=== PATIENT | male | born 1980 | race Caucasian/White ===

== ENCOUNTER 2022-11-06 18:43 | Emergency (ER) | payer SELFPAY ==
[2022-11-06 18:50] VITALS: BP 144/96
[2022-11-06] MEDS ORDERED: BUPIVACAINE 0.5% PF 10 ML VIAL SUBQ STA (18:53)
[2022-11-06] MEDS ORDERED: ceFAZolin 1 GM VIAL IM STA (18:53)
--- NOTE | 2022-11-06 18:54 | ED Physician Documentation ---
PD HPI UPPER EXT INJURY - Stated complaint Stated Complaint: RT FINGER INJ - Chief complaint Chief Complaint: Trauma Ext - History obtained from History obtained from: Patient (Right-handed gentleman who is up-to-date on tetanus cut the tip of his dominant, right index finger while working with a lawnmower just prior to arrival.) PD PAST MEDICAL HISTORY - Present Medications Home Medications: Ambulatory Orders Medication Instructions Recorded Confirmed Bacitracin Zinc Oint 1 applic TOP BID #1 each 11/06/22 HYDROcod/ACETAM 5/325 [[place] 5/325] 1 - 2 tab PO Q6H PRN #15 tablet 11/06/22 cephALEXin [Keflex] 500 mg PO Q6H #28 cap 11/06/22 - Allergies Allergies/Adverse Reactions: Allergies Allergy/AdvReac Type Severity Reaction Status Date / Time No Known Drug Allergies Allergy Verified 11/06/22 18:47 PD ED PE NORMAL - Vitals Vital signs reviewed: Yes - General General: Alert and oriented X 3, No acute distress - Extremities Extremities: Other (He has incomplete amputation with a laceration through the middle of the distal phalanx including the nail and is insensate at the tip. This is of the right second finger) - Neuro Neuro: Alert and oriented X 3, Normal speech Results - Vitals Vitals: Vital Signs - 24 hr 11/06/22 18:47 Temperature 36.5 C Heart Rate 88 Respiratory 20 Rate Blood Pressure 144/96 H O2 Saturation 99 Oxygen O2 Source Room air - Rads (name of study) r 2nd finger Relevant Findings:: Final report received, EMP independent interpretation of test Procedures - Laceration (location) Right second finger Length in cm: 3 Wound type: Flap, Exposure of bone Tendon involvement: Tendon intact Anesthesia: Marcaine 0.5% (Digital block with excellent anesthesia) Wound preparation: Irrigated copiously NS, Debrided moderately, Wound explored Skin layer closure: Nylon, Interrupted, Size #-0 - enter number (4-0) Other: Tetanus UTD - Splint (location) - Minor Right second finger Splint applied by: Tech Type of splint: Metal foam finger splint PD Medical Decision Making - ED course ED course: 42-year-old gentleman with open fracture with complex laceration of the distal part of the right dominant second finger. Digital block was done with excellent anesthesia and it was thoroughly irrigated. The nail was already gone, there was no remaining nail at all either proximal or distal to the laceration. The laceration was closed with interrupted sutures. Discussed with him the need to follow-up with orthopedics for further evaluation and treatment. He received Ancef IM here. 1 g. Departure - Departure Disposition: 01 Home, Self Care Clinical Impression: Open fracture of finger of right hand Qualifiers: Encounter type: initial encounter Finger: index finger Phalanx: distal Fracture alignment: displaced Qualified Code(s): S62.630B - Displaced fracture of distal phalanx of right index finger, initial encounter for open fracture Condition: Good Record reviewed to determine appropriate education?: Yes Instructions: ED Fx Finger Open Follow-Up: Orthopedic Care [Provider Group] Prescriptions: Bacitracin Zinc Oint 1 applic TOP BID #1 each cephALEXin [Keflex] 500 mg PO Q6H #28 cap HYDROcod/ACETAM 5/325 [[place] 5/325] 1 - 2 tab PO Q6H PRN #15 tablet PRN Reason: Pain Comments: I sent your prescriptions electronically to [facility] in [place]. If pain is mild you can take ibuprofen, follow-up with the orthopedics, call his office tomorrow for the next available appointment. After today you can take the current dressing off and wash briefly with soap and water and let it air dry. Then apply the antibiotic ointment that I also prescribed and a loose large gauze wrap and then reapply the splint over that. Do not work with the hand until cleared by orthopedics. I am prescribing a short course of narcotic pain medication for you. These are potentially dangerous and addictive medications that should be used carefully. These medications may constipate you. Take an qlkk-hae-bumdfas stool softener (docusate) twice daily with plenty of water while taking these medications. If you go 24 hours without a bowel movement, take [id number] miralax, per package instructions. Do not drink or drive while taking these medications. If you received narcotic or sedating medications while in the emergency department, do not drive for 24 hours. Store this medication in a safe, secure place and out of reach of children. It is a violation of federal law to give or sell this medication to another person or to use in a manner other than prescribed. The ED will not refill narcotic prescriptions, including prescriptions lost or stolen. To dispose of unwanted medications: 1. [facility] at [address] in [place] has a medication drop box. They accept prescription medications (in pill form) Sunday through Sunday 9:00 a.m. to 5:00 p.m. 2. The [facility] [employer] accepts prescription medications (in pill form only) for disposal year round. Call for more information. 3. Contact the [facility] for the next [facility] sponsored prescription drug collection event. , [phone], or [phone]; Note that many narcotic pain relievers also contain Tylenol/acetaminophen. Please ensure that your total dose of acetaminophen from all sources does not exceed 3 g (3000 mg) per day.
--- NOTE | 2022-11-06 19:23 | XRAY Report ---
PROCEDURE: Finger(s) RT INDICATIONS: finger inj TECHNIQUE: AP hand, 2 views of the second finger(s) acquired. COMPARISON: None. FINDINGS: Bones: Moderately displaced comminuted fracture of the distal tuft of the distal phalanx of the [place] nd digit. No suspicious bony lesions. Soft tissues: No suspicious soft tissue calcifications or masses. IMPRESSION: Second digit fracture. Reviewed by: Tanesha Hernandez MD on 11/06/2022 7:22 PM PDT Approved by: Tanesha Hernandez MD on 11/06/2022 7:22 PM PDT Station ID: [id number]
== END 2022-11-06 20:00 | disposition home or self-care (01) ==
LOC: ED 18:43
DX: S62.630B Displaced fracture of distal phalanx of right index finger, initial encounter for open fracture (principal); W26.8XXA Contact with other sharp object(s), not elsewhere classified, initial encounter
CPT/HCPCS: 13132; 99284

== ENCOUNTER 2022-11-30 08:00 | Outpatient (CLI) | payer SELFPAY ==
--- NOTE | 2022-11-30 18:17 | XRAY Report ---
PROCEDURE: Finger(s) RT INDICATIONS: RIGHT 2ND FINGER FX TECHNIQUE: AP hand, 2 views of the second finger(s) acquired. COMPARISON: None. FINDINGS: Bones: Comminuted fracture distal second phalanx with slight dorsal displacement. Normal bone minera lization. Soft tissues: No suspicious soft tissue calcifications or masses. IMPRESSION: Comminuted distal second phalangeal fracture Reviewed by: Grant Valle MD on 11/30/2022 5:16 PM AKERICK Approved by: Grant Valle MD on 11/30/2022 5:16 PM AKDT Station ID: [id number]
== END 2022-11-30 23:59 | disposition home or self-care (01) ==
LOC: DI.WOS 08:00
PROVIDERS: ATTEND Orthopaedic Surgery
DX: S62.630A Displaced fracture of distal phalanx of right index finger, initial encounter for closed fracture (principal)

== ENCOUNTER 2023-04-30 08:00 | Outpatient (CLI) | payer SELFPAY ==
[2023-04-30 12:11] LABS: BASOPHILS # (AUTO) 0.1 10^3/uL (0.0-0.1); BASOPHILS % (AUTO) 1.1 %; EOSINOPHILS % (AUTO) 0.4 %; LYMPHOCYTES # (AUTO) 0.8 10^3/uL (1.5-3.5); LYMPHOCYTES % (AUTO) 15.3 %; MEAN CORPUSCULAR HEMOGLOBIN 35.5 pg (27.0-31.0); MEAN CORPUSCULAR HGB CONC 35.1 g/dL (32.0-36.0); MEAN CORPUSCULAR VOLUME 101.1 fL (80.0-94.0); MEAN PLATELET VOLUME 9.8 fL (7.4-11.4); MONOCYTES # (AUTO) 0.7 10^3/uL (0.0-1.0); MONOCYTES % (AUTO) 12.6 %; NEUTROPHILS # (AUTO) 3.8 10^3/uL (1.5-6.6); NEUTROPHILS % (AUTO) 70.4 %; PLT - PLATELET COUNT 261 10^3/uL (130-450); RED BLOOD COUNT 3.66 10^6/uL (4.70-6.10); RED CELL DISTRIBUTION WIDTH 12.7 % (12.0-15.0); WHITE BLOOD COUNT 5.4 x10^3/uL (4.8-10.8)
[2023-04-30 12:46] LABS: CALCIUM 8.6 mg/dL (8.5-10.3); CREATININE 0.6 mg/dL (0.6-1.3); POTASSIUM 3.3 mmol/L (3.5-4.5)
== END 2023-04-30 08:15 | disposition home or self-care (01) ==
LOC: LAB.N 08:00
PROVIDERS: ATTEND Physician Assistant Medical
DX: R55 Syncope and collapse (principal)
CPT/HCPCS: 36415; 80048; 85025